=== PATIENT | female | born 1990 | race Caucasian/White ===

== ENCOUNTER 2020-03-07 05:00 | Emergency (ER) | payer BC, OTHER ==
[~2020-03-07] VITALS: Ht 154.9 cm; Wt 83.9 kg
[2020-03-07 05:08] VITALS: BP 99/62
--- NOTE | 2020-03-07 05:12 | NUR ---
PT AMBULATED TO RESTROOM WITH STEADY GAIT.
--- NOTE | 2020-03-07 05:15 | NUR ---
PT AMBUALTED WITH STEADY GAIT TO BED 7. UA PROVIDED.
--- NOTE | 2020-03-07 05:16 | NUR ---
PT 29 Y/O BIB SELF FOR C/O 10 PELVIC PAIN X 3 WEEKS. PT STATES PAIN IS SHARP, COMES AND GOES, AND ON L AND R SIDE OF PELVIS. PT DENIES ANY PAINFUL URINATION. DENIES ABNORMAL DISCHARGE OR BLEEDING. ABD IS ROUND, SOFT , AND TENDER TO TOUCH IN LLQ AND RLQ. PT STATES, "I HAVE HAS SURGERY IN THE PAST FOR OVARIAN CYSTS." PT STATES SHE LAST TOOK TYLENOL FOR PAIN LAST NIGHT @ 21:00. PT VSS. BED IS LOCKED AND I LOWEST POSTION. MEDHX: ASTHMA, OVARIAN CYSTS ALLERGIES: NKA
--- NOTE | 2020-03-07 06:17 | NUR ---
LAB AT BEDSIDE.
--- NOTE | 2020-03-07 06:18 | NUR ---
PT TAKEN TO CT VIA W/C.
[2020-03-07 06:27] LABS: BASOPHILS % (AUTO) 0.2 % (0.0-2.0); EOSINOPHILS # (AUTO) 0.1 K/uL (0-0.4); EOSINOPHILS % (AUTO) 1.4 % (0.0-4.0); HEMATOCRIT 37.4 % (36-48); HEMOGLOBIN 12.4 g/dL (12.0-16.0); LYMPHOCYTES # (AUTO) 1.8 K/uL (2.5-16.5); LYMPHOCYTES % (AUTO) 19.3 % (20.5-51.1); MEAN CORPUSCULAR HEMOGLOBIN 30 pg (27-31); MEAN CORPUSCULAR HGB CONC 33 g/dL (33-37); MONOCYTES # (AUTO) 0.4 K/uL (0.8-1.0); MONOCYTES % (AUTO) 3.9 % (1.7-9.3); NEUTROPHILS % (AUTO) 75.2 % (42.2-75.2); PLATELET COUNT (AUTO) 282 K/uL (140-450); RED CELL DISTRIBUTION WIDTH 14.2 % (11.6-13.7); WHITE BLOOD COUNT (AUTO) 9.4 K/uL (4.8-10.8)
[2020-03-07 06:43] LABS: APPEARANCE,URINE CLEAR (CLEAR); BILIRUBIN,URINE NEGATIVE (NEGATIVE); BLOOD, URINE NEGATIVE (NEGATIVE); COLOR,URINE YELLOW (YELLOW); LEUKOCYTE ESTERASE ,URINE NEGATIVE (NEGATIVE); NITRITE, URINE NEGATIVE (NEGATIVE); PH,URINE 6.5 (5.0-9.0); UGLUCOSE NEGATIVE (NEGATIVE)
[2020-03-07 06:49] LABS: ALBUMIN 3.6 g/dL (3.4-5.0); ANION GAP 13.9 (8-16); CREATININE 0.6 mg/dL (0.6-1.3); POTASSIUM 3.9 mmol/L (3.5-5.1); TOTAL BILIRUBIN 0.3 mg/dL (0.0-1.0)
[2020-03-07] MEDS ORDERED: KETOROLAC 30 MG/ML VIAL IM ONE (07:00)
--- NOTE | 2020-03-07 07:10 | NUR ---
REPORT GIVEN TO DEVIN YORK FOR CONTINUED CARE
--- NOTE | 2020-03-07 07:11 | NUR ---
Received report from JAYLEN Morocho. Transfer of care at this time
[2020-03-07 08:15] VITALS: BP 104/66
--- NOTE | 2020-03-07 08:16 | NUR ---
Patient discharged with v/s stable. Written and verbal after care instructions given and explained. Patient alert, oriented and verbalized understanding of instructions. Ambulatory with steady gait. All questions addressed prior to discharge. ID band removed. Patient advised to follow up with PMD. Rx of Ibuprofen 600mg given. Patient educated on indication of medication including possible reaction and side effects. Opportunity to ask questions provided and answered.
== END 2020-03-07 08:16 | disposition home or self-care (01) ==
LOC: MED 05:00
DX: R10.2 Pelvic and perineal pain (principal); R30.0 Dysuria; J45.909 Unspecified asthma, uncomplicated; N83.299 Other ovarian cyst, unspecified side
CPT/HCPCS: 36415; 74176; 80053; 81003; 81025; 85025; 96372; 99284; J1885

== ENCOUNTER 2021-07-30 23:01 | Emergency (ER) | payer OTHER ==
[~2021-07-30] VITALS: Ht 157.5 cm; Wt 72.6 kg
--- NOTE | 2021-07-30 23:08 | NUR ---
PT BIBA BLS. TAKEN TO BED 9
[2021-07-30 23:10] VITALS: BP 117/82
--- NOTE | 2021-07-30 23:14 | NUR ---
Dr. Schumacher examining patient.
--- NOTE | 2021-07-30 23:28 | NUR ---
PT TAKEN TO CT
--- NOTE | 2021-07-30 23:43 | NUR ---
PT RETURN FROM CT
--- NOTE | 2021-07-30 23:57 | NUR ---
30 YO F BIBA FROM HOME WITH C/C OF 10/10 "WORST H/A EVER". IS VERY TEARFUL. IS 3 WEEKS POST-OP ACL REPAIR. VERENICE
[2021-07-31] MEDS: NACL 0.9% 1,000 ML IV ONE (00:02)
[2021-07-31] MEDS: diphenhydrAMINE 50 MG/ML VIAL IVP ONE (00:03)
[2021-07-31] MEDS: METOCLOPRAMIDE 10 MG/2 ML INJ VIAL IVP ONE (00:04)
--- NOTE | 2021-07-31 00:36 | NUR ---
PT AWAKE BACK IN BED. WARM BLANKETS PROVIDED. PT STATES SHE IS FEELING BETTER.
[2021-07-31 01:48] VITALS: BP 93/60
--- NOTE | 2021-07-31 01:48 | NUR ---
Patient discharged with v/s stable. Written and verbal after care instructions given and explained. Patient verbalized understanding. Ambulatory with steady gait. All questions addressed prior to discharge. Advised to follow up with PMD.
== END 2021-07-31 01:48 | disposition home or self-care (01) ==
LOC: MED 23:01
DX: R51.9 Headache, unspecified (principal); R11.0 Nausea; J45.909 Unspecified asthma, uncomplicated; Z98.890 Other specified postprocedural states
CPT/HCPCS: 70450; 96361; 96374; 96375; 99284; J1200; J2765; J7030

== ENCOUNTER 2022-01-05 16:23 | Emergency (ER) | payer OTHER ==
[~2022-01-05] VITALS: Ht 162.6 cm; Wt 99.8 kg
[2022-01-05 16:24] VITALS: BP 136/81
--- NOTE | 2022-01-05 16:31 | NUR ---
PT AMBULATED TO ER BED 5 WITH CANE.
--- NOTE | 2022-01-05 17:22 | NUR ---
ROSA FLORES AT BEDSIDE EVALUATING PT
--- NOTE | 2022-01-05 17:40 | NUR ---
31/F PRESENTS TO ED WITH C/O BLURRED VISION X1 MONTH. PER PATIENT DENIES INJURY/TRAUMA TO EYES, DENIES GETTING ANY TYPE OF CHEMICALS OR SUBSTANCE IN HER EYE TO HER KNOWLEDGE. PATIENT REPORTS HER RX GLASSES ARE FOR JUST HER RIGHT EYE BUT STATES SHE HAS NOT FOLLOWED UP WITH AN PUBLIC HEALTH D/T CHANGE IN INSURANCE. PATIENT REPORTS TODAY FEELING BURNING IN LEFT EYE AND HEADACHE. PATIENT DENIES ANY RECENT COLD SYMPTOMS, FEVERS, NO EYE REDNESS OR DISCHARGE NOTED TO EYES, DENIES DIZZINESS.
[2022-01-05] MEDS ORDERED: TETRACAINE HCL/PF 0.5% OPTH 4 ML BTL OP ONE (17:50)
[2022-01-05] MEDS ORDERED: TOMOMETER 1 DEV DEV MC ONE (17:52)
[2022-01-05] MEDS ORDERED: TETRACAINE HCL/PF 0.5% OPTH 4 ML BTL ONE (17:52)
[2022-01-05] MEDS ORDERED: IBUP-1842 PO (18:12)
[2022-01-05] MEDS ORDERED: NAPR-1704 PO (18:23)
[2022-01-05 18:43] VITALS: BP 136/81
--- NOTE | 2022-01-05 18:43 | NUR ---
Patient discharged with v/s stable. Written and verbal after care instructions BLURRED VISION given and explained. Patient alert, oriented and verbalized understanding of instructions. Ambulatory with steady gait. All questions addressed prior to discharge. ID band removed. Patient advised to follow up with PMD. Rx of NAPROXEN given. Opportunity to ask questions provided and answered.
--- NOTE | 2022-01-05 18:45 | NUR ---
The patient's care was reviewed and supervised by Eli Ospina RN.
== END 2022-01-05 18:43 | disposition home or self-care (01) ==
LOC: MED 16:23
DX: H53.9 Unspecified visual disturbance (principal); J45.909 Unspecified asthma, uncomplicated; Z91.010 Allergy to peanuts; Z88.6 Allergy status to analgesic agent; Z90.49 Acquired absence of other specified parts of digestive tract; Z98.890 Other specified postprocedural states
CPT/HCPCS: 99283

== ENCOUNTER 2023-11-16 21:22 | Emergency (ER) | payer OTHER ==
[~2023-11-16] VITALS: Ht 154.9 cm; Wt 108.0 kg
[~2023-11-16 21:22] MED LIST: NAPR-1704 PO
[2023-11-16 21:41] VITALS: BP 146/89; PULSE 103; RESP 14; TEMP 98.6; O2SAT 100
[2023-11-16 23:29] VITALS: BP 134/85; PULSE 108; RESP 20
[2023-11-16 23:30] VITALS: O2SAT 98
[2023-11-16 23:35] LABS: BASOPHILS # (AUTO) 0.1 K/uL (0.00-0.22); BASOPHILS % (AUTO) 0.5 % (0.0-2.0); EOSINOPHILS # (AUTO) 0.3 K/uL (0-0.4); EOSINOPHILS % (AUTO) 2.5 % (0.0-4.0); HEMATOCRIT 35.8 % (36-48); HEMOGLOBIN 11.2 g/dL (12.0-16.0); LYMPHOCYTES # (AUTO) 2.3 K/uL (2.5-16.5); MEAN CORPUSCULAR HEMOGLOBIN 24 pg (27-31); MEAN CORPUSCULAR HGB CONC 31 g/dL (33-37); MEAN CORPUSCULAR VOLUME 75.4 fL (80-94); MONOCYTES # (AUTO) 0.4 K/uL (0.8-1.0); MONOCYTES % (AUTO) 3.4 % (1.7-9.3); NEUTROPHILS # (AUTO) 8.5 K/uL (1.8-7.7); NEUTROPHILS % (AUTO) 73.6 % (42.2-75.2); PLATELET COUNT (AUTO) 482 K/uL (140-450); RED BLOOD CELL COUNT(AUTO) 4.75 MIL/uL (4.20-5.40); RED CELL DISTRIBUTION WIDTH 18.7 % (11.6-13.7); WHITE BLOOD COUNT (AUTO) 11.5 K/uL (4.8-10.8)
[2023-11-16 23:36] LABS: APPEARANCE,URINE CLEAR (CLEAR); BILIRUBIN,URINE NEGATIVE (NEGATIVE); BLOOD, URINE NEGATIVE (NEGATIVE); COLOR,URINE YELLOW (YELLOW); LEUKOCYTE ESTERASE ,URINE TRACE (NEGATIVE); NITRITE, URINE NEGATIVE (NEGATIVE); PROTEIN,URINE NEGATIVE (NEGATIVE); UGLUCOSE NEGATIVE (NEGATIVE)
[2023-11-16 23:41] LABS: BACTERIA,URINE 10-30 (MOD) /HPF (None Seen); MUCUS,URINE 1+ /LPF (None Seen); RBC,URINE 0-5 /HPF (0-5); SQUAMOUS EPITHELIAL CELL,UR 4-10 (MOD) /LPF (0-3 (FEW))
[2023-11-16 23:44] LABS: ANION GAP 12.8 (8-16); CALCIUM 8.8 mg/dL (8.5-10.1); CARBON DIOXIDE 28.8 mmol/L (21-32); CREATININE 0.8 mg/dL (0.6-1.3); POTASSIUM 3.6 mmol/L (3.5-5.1)
[2023-11-16] MEDS: KETOROLAC 30 MG/ML VIAL IVP ONE (23:44)
[2023-11-16 23:51] LABS: ALBUMIN 3.5 g/dL (3.4-5.0); TOTAL BILIRUBIN 0.4 mg/dL (0.0-1.0); TOTAL PROTEIN, SERUM 8.5 g/dL (6.4-8.2)
[2023-11-16 23:54] LABS: LACTIC ACID 1.6 mmol/L (0.4-2.0)
[2023-11-17] MEDS ORDERED: cefTRIAXone 1,000 MG VIAL ONE (01:21)
[2023-11-17 01:25] VITALS: O2SAT 98
[2023-11-17] MEDS: ONDANSETRON 4 MG/2 ML VIAL IVP ONE (01:39)
[2023-11-17] MEDS: MORPHINE SULFATE 4 MG/ML SYR IVP ONE (01:40)
[2023-11-17] MEDS ORDERED: CIPR500T4 PO (02:19)
== END 2023-11-17 02:25 | disposition home or self-care (01) ==
LOC: MED 21:22
DX: N39.0 Urinary tract infection, site not specified (principal); R51.9 Headache, unspecified; Z79.899 Other long term (current) drug therapy
CPT/HCPCS: 36415; 70450; 80048; 80076; 81001; 83605; 85025; 87040; 87086; 96365; 96375; 99285; J0696; J1885; J2270; J2405